=== PATIENT | female | born 1990 | race Two or more races ===

== ENCOUNTER 2020-09-26 10:26 | Inpatient (IN) | payer OTHER ==
[~2020-09-26] VITALS: Ht 160 cm; Wt 60.3 kg
[2020-09-26] MEDS ORDERED: PRENATAL + DHA1 EAC1 PO (10:34)
[2020-09-26] MEDS ORDERED: VALTREX1000 MG PO (10:34)
[2020-09-26] MEDS ORDERED: DHA100 MG PO (10:35)
== END 2020-09-28 12:15 | disposition home or self-care (01) | DRG 807 ==
LOC: SURG-SUITE 10:26 → LDR 10:26 → SURG-SUITE 18:16
PROVIDERS: ADMIT Obstetrics & Gynecology; ATTEND Obstetrics & Gynecology
PROC: 10E0XZZ Delivery of Products of Conception, External Approach (ICD-10-PCS; principal; 2020-09-26)
PROC: 0W8NXZZ Division of Female Perineum, External Approach (ICD-10-PCS; 2020-09-26)
PROC: 3E033VJ Introduction of Other Hormone into Peripheral Vein, Percutaneous Approach (ICD-10-PCS; 2020-09-26)
PROC: 4A1HXFZ Monitoring of Products of Conception, Cardiac Rhythm, External Approach (ICD-10-PCS; 2020-09-26)
DX: O42.02 Full-term premature rupture of membranes, onset of labor within 24 hours of rupture (principal); Z37.0 Single live birth; Z3A.38 38 weeks gestation of pregnancy; Z20.828 Contact with and (suspected) exposure to other viral communicable diseases